=== PATIENT | male | born 1965 | race Asian ===

== ENCOUNTER 2020-12-14 23:43 | Emergency (ER) | payer OTHER ==
[~2020-12-14] VITALS: Ht 160 cm; Wt 67.0 kg
[2020-12-15] MEDS ORDERED: ONDANSETRON ODT 4 MG ONE (01:45)
[2020-12-15] MEDS ORDERED: KETOROLAC 30 MG/1 ML ONE (01:45)
[2020-12-15 01:51] LABS: BASOPHILS % (AUTO) 1 % (0-1); EOSINOPHILS % (AUTO) 2 % (1-7); LYMPHOCYTES % (AUTO) 14 % (22-44); MEAN CORPUSCULAR HEMOGLOBIN 32.3 pg (27.5-34.5); MEAN CORPUSCULAR HGB CONC 34.2 g/dL (33.2-36.2); MEAN PLATELET VOLUME 7.7 fL (7.4-10.4); MONOCYTES % (AUTO) 8 % (2-9); NEUTROPHILS % (AUTO) 75 % (42-75); PLATELET COUNT 148 x10^3/uL (130-400); RED BLOOD COUNT 4.65 x10^6/uL (4.38-5.82); RED CELL DISTRIBUTION WIDTH 13.5 % (9.4-14.8)
--- NOTE | 2020-12-15 01:56 | NUR ---
MEDS ADMIN PER JUN. US AT BEDSIDE. PT AWARE OF NEED FOR URINE SAMPLE AFTER US.
[2020-12-15] MEDS ORDERED: PLEASE ENTER ALLERGIES MC SCH (02:00)
[2020-12-15] MEDS ORDERED: KETOROLAC 30 MG/1 ML IM ONE (02:00)
[2020-12-15] MEDS ORDERED: ONDANSETRON ODT 4 MG PO ONE (02:00)
[2020-12-15 02:03] LABS: ALBUMIN 3.8 g/dL (3.4-5.0); ANION GAP 4 mmol/L (5-15); CALCIUM 8.6 mg/dL (8.5-10.1); CHLORIDE 102 mmol/L (98-107); CREATININE 0.97 mg/dL (0.7-1.3)
--- NOTE | 2020-12-15 02:26 | NUR ---
PT PROVIDED URINE SAMPLE. UA COLLECTED AND SENT TO LAB. PT STATES PAIN IS BETTER AFTER PAIN MEDS.
[2020-12-15 02:48] LABS: MICROSCOPIC AUTO
[2020-12-15 02:52] VITALS: BP 107/75
--- NOTE | 2020-12-15 02:57 | NUR ---
REPORT GIVEN TO PETER THOMAS. TRANSFER OF CARE.
--- NOTE | 2020-12-15 03:25 | NUR ---
Patient/Caregiver given discharge instructions and they have confirmed that they understand the instructions. Patient ambulatory with steady gait. NAD, all questions answered appropriately, denies additional needs at this time. No personal belongings left in room after discharge.
== END 2020-12-15 03:26 | disposition home or self-care (01) ==
LOC: ED 23:45
DX: N13.2 Hydronephrosis with renal and ureteral calculous obstruction (principal); F17.200 Nicotine dependence, unspecified, uncomplicated
CPT/HCPCS: 36415; 76770; 80048; 81001; 82040; 85025; 96372; 99284; J1885; Q0162